=== PATIENT | female | born 1930 | race Asian ===

== ENCOUNTER 2019-05-18 08:01 | Inpatient (IN) | payer OTHER ==
[2019-05-18 08:53] LABS: ADD MAN DIFF? NO
[2019-05-18] MEDS: SODIUM CHLORIDE 0.9% 1L BAG IV* (08:56)
[2019-05-18 08:59] LABS: WHITE BLOOD COUNT 10.6 10^3/ul (4.8-10.8)
[2019-05-18 08:59] LABS: BASOPHIL # 0.1 10^3/ul (0.0-0.1); BASOPHILS % 0.5 % (0.0-2.0); EOSINOPHILS # 0.3 10^3/ul (0.0-0.5); EOSINOPHILS % 2.7 % (0.0-7.0); HEMATOCRIT 28.8 % (37.0-47.0); HEMOGLOBIN 10.2 g/dl (12.0-16.0); LYMPHOCYTES # 1.3 10^3/ul (0.8-2.9); LYMPHOCYTES % 11.9 % (15.0-51.0); MEAN CORPUSCULAR HEMOGLOBIN 30.5 pg (29.0-33.0); MEAN CORPUSCULAR HGB CONC 35.4 g/dl (32.0-37.0); MEAN CORPUSCULAR VOLUME 86.2 fl (82.0-101.0); MONOCYTE # 1.5 10^3/ul (0.3-0.9); MONOCYTES % 13.9 % (0.0-11.0); NEUTROPHIL # 7.5 10^3/ul (1.6-7.5); NEUTROPHILS % 70.6 % (39.0-77.0); PLATELET COUNT 236 10^3/UL (140-415); RED BLOOD COUNT 3.34 10^6/ul (4.20-5.40)
[2019-05-18 09:24] LABS: ALANINE AMINOTRANSFERASE 26 IU/L (13-69); ALBUMIN 4.1 g/dl (3.3-4.9); ALBUMIN/GLOBULIN RATIO 1.02; ALKALINE PHOSPHATASE 92 IU/L (42-121); ANION GAP 9 (5-13); ASPARTATE AMINO TRANSFERASE 38 IU/L (15-46); BILIRUBIN,INDIRECT 0.7 mg/dl (0-1.1); BILIRUBIN,TOTAL 0.7 mg/dl (0.2-1.3); BLOOD UREA NITROGEN 24 mg/dl (7-20); CARBON DIOXIDE 27 mmol/L (21-31); CHLORIDE 92 mmol/L (97-110); CREATININE 1.68 mg/dl (0.44-1.00); GLUCOSE 138 mg/dl (70-220); POTASSIUM 4.6 mmol/L (3.5-5.1); SODIUM 128 mmol/L (135-144); TOTAL PROTEIN 8.1 g/dl (6.1-8.1)
[2019-05-18 09:27] LABS: INR 1.04; PROTIME 13.7 Sec (11.9-14.9); PT RATIO 1.1
[2019-05-18 09:28] LABS: PARTIAL THROMBOPLASTIN TIME 37.2 Sec (23.0-35.0)
[2019-05-18] MEDS: ALBUTEROL 0.083% (NEB) 2.5 MG/3 ML AMP HHN (09:28)
[2019-05-18 09:35] LABS: TROPONIN-I 0.016 ng/ml (0.000-0.120)
[2019-05-18 10:32] LABS: ADD UMIC YES; UR ASCORBIC ACID NEGATIVE (NEGATIVE); UR BACTERIA FEW /HPF (NONE SEEN); UR BILIRUBIN (Dip) NEGATIVE (NEGATIVE); UR BLOOD (Dip) 2+ mg/dL (NEGATIVE); UR CLARITY SLIGHTLY CLOUDY (CLEAR); UR COLOR YELLOW (YELLOW); UR GLUCOSE (Dip) 1+ mg/dL (NEGATIVE); UR KETONES (Dip) TRACE mg/dL (NEGATIVE); UR LEUKOCYTE ESTERASE (Dip) 3+ Leu/ul (NEGATIVE); UR NITRITE (Dip) NEGATIVE (NEGATIVE); UR RBC 3 /HPF (0-5); UR SPECIFIC GRAVITY (Dip) 1.006 (1.003-1.030); UR TOTAL PROTEIN (Dip) 2+ mg/dl (NEGATIVE); UR UROBILINOGEN (Dip) NEGATIVE (NEGATIVE); UR WBC 58 /HPF (0-5)
[2019-05-18 11:16] LABS: LACTIC ACID 1.2 mmol/L (0.5-2.0)
[2019-05-18] MEDS: CEFTRIAXONE 1 GM/50 ML (PMX) 50 ML IVPB (11:26)
[2019-05-18] MEDS ORDERED: ACETAMINOPHEN 325 MG TAB PO (12:00)
[2019-05-18] MEDS ORDERED: ONDANSETRON 4 MG INJ IV (12:00)
[2019-05-18 15:55] LABS: LACTIC ACID 1.8 mmol/L (0.5-2.0)
[2019-05-18] MEDS ORDERED: GLUCOSE GEL 15 GRAM TUBE BUCCAL (16:00)
[2019-05-18] MEDS ORDERED: DEXTROSE 50% 50 ML SYRINGE IV ×2 (16:00)
[2019-05-18] MEDS ORDERED: HYDROCODONE/APAP (5/325) TAB PO (16:00)
[2019-05-18] MEDS ORDERED: NACL 0.9% 3 ML SYG IV (16:00)
[2019-05-18] MEDS ORDERED: GLUCOSE GEL 15 GRAM TUBE PO ×2 (16:00)
[2019-05-18] MEDS ORDERED: GLUCAGON 1 MG INJ IM (16:00)
[2019-05-18] MEDS: INSULIN ASPART [NOVOLOG] 3 ML PEN SC ×2 (18:05→20:22)
[2019-05-18] MEDS: INSULIN GLARGINE [LANTus] (100 UNITS/ML) SYG SC (20:19)
[2019-05-18] MEDS: HEPARIN 5,000 UNIT/1 ML VIAL SC (20:22)
[2019-05-19] MEDS: LORAZEPAM 2 MG INJ IV (00:58)
[2019-05-19] MEDS: ACCUCHECK AT 2AM (Patients on SS coverage) XX (02:00)
[2019-05-19] MEDS: ALBUTEROL 0.083% (NEB) 2.5 MG/3 ML AMP HHN ×2 (06:15→11:35)
[2019-05-19 06:22] LABS: ADD MAN DIFF? NO
[2019-05-19 06:33] LABS: WHITE BLOOD COUNT 11.1 10^3/ul (4.8-10.8)
[2019-05-19 06:33] LABS: ABNORMAL IP MESSAGE 1; BASOPHILS % 0.3 % (0.0-2.0); EOSINOPHILS % 0.3 % (0.0-7.0); HEMATOCRIT 26.1 % (37.0-47.0); HEMOGLOBIN 9.3 g/dl (12.0-16.0); LYMPHOCYTES # 1.2 10^3/ul (0.8-2.9); LYMPHOCYTES % 10.5 % (15.0-51.0); MEAN CORPUSCULAR HEMOGLOBIN 31.2 pg (29.0-33.0); MEAN CORPUSCULAR HGB CONC 35.6 g/dl (32.0-37.0); MEAN CORPUSCULAR VOLUME 87.6 fl (82.0-101.0); MONOCYTE # 1.6 10^3/ul (0.3-0.9); MONOCYTES % 14.8 % (0.0-11.0); NEUTROPHIL # 8.2 10^3/ul (1.6-7.5); NEUTROPHILS % 73.6 % (39.0-77.0); PLATELET COUNT 232 10^3/UL (140-415); RED BLOOD COUNT 2.98 10^6/ul (4.20-5.40); RED CELL DISTRIBUTION WIDTH 11.2 % (11.5-14.5)
[2019-05-19 06:37] LABS: POSITIVE DIFF @See below
[2019-05-19 07:00] LABS: ALANINE AMINOTRANSFERASE 19 IU/L (13-69); ALBUMIN 3.7 g/dl (3.3-4.9); ALBUMIN/GLOBULIN RATIO 1.12; ALKALINE PHOSPHATASE 89 IU/L (42-121); ANION GAP 12 (5-13); ASPARTATE AMINO TRANSFERASE 35 IU/L (15-46); BILIRUBIN,INDIRECT 0.6 mg/dl (0-1.1); BILIRUBIN,TOTAL 0.6 mg/dl (0.2-1.3); BLOOD UREA NITROGEN 20 mg/dl (7-20); CALCIUM 8.7 mg/dl (8.4-10.2); CARBON DIOXIDE 24 mmol/L (21-31); CHLORIDE 97 mmol/L (97-110); CREATININE 1.49 mg/dl (0.44-1.00); GLUCOSE 148 mg/dl (70-220); POTASSIUM 3.9 mmol/L (3.5-5.1); SODIUM 133 mmol/L (135-144)
[2019-05-19] MEDS: INSULIN ASPART [NOVOLOG] 3 ML PEN SC ×4 (08:21→20:21)
[2019-05-19 08:31] LABS: HEMOGLOBIN A1C 6.4 % (0-5.9)
[2019-05-19] MEDS: HEPARIN 5,000 UNIT/1 ML VIAL SC ×3 (09:00→20:22)
[2019-05-19] MEDS: CEFTRIAXONE 1 GM/50 ML (PMX) 50 ML IVPB (09:45)
[2019-05-19] MEDS: FUROSEMIDE 20 MG TAB PO (10:42)
[2019-05-19] MEDS: AMLODIPINE 5 MG TAB PO (10:42)
[2019-05-19] MEDS: METOPROLOL (XL) 50 MG TAB PO (10:42)
[2019-05-19] MEDS: CILOSTAZOL 100 MG TAB PO ×2 (10:42→20:19)
[2019-05-19] MEDS: ASPIRIN (EC) 81 MG TAB PO (10:42)
[2019-05-19] MEDS: AZITHROMYCIN 250 MG TAB PO (11:48)
[2019-05-19] MEDS: METHYLPREDNISOLONE 40 MG INJ IV ×4 (11:48→22:01)
[2019-05-19] MEDS: FUROSEMIDE 20 MG INJ IV (11:53)
[2019-05-19] MEDS: ALBUTEROL/IPRATROPIUM (NEB) 3 ML AMP HHN ×3 (14:02→20:27)
[2019-05-19] MEDS: FUROSEMIDE 40 MG INJ IV (16:21)
[2019-05-19 17:57] LABS: Allen Test ACCEPTAB; Arterial Base Excess -4.2 mmol/L (-3.0-3); Arterial Blood Gas Oxygen Sat 97.4 mmHG (95.0-100.0); Arterial COHb 0.3 % (0.0-3.0); Arterial Fraction of Oxyhgb 96.9 % (93.0-99.0); Arterial MetHb 0.2 % (0.0-1.5); MODE NASAL CANNULA; Site Right Radial
[2019-05-19 19:12] LABS: SODIUM,URINE RANDOM 22 mmol/L (30-90)
[2019-05-19 19:50] LABS: OSMOLALITY,URINE 267 mOsm/kg (250-1200)
[2019-05-19] MEDS: ATORVASTATIN 20 MG TAB PO (20:19)
[2019-05-19] MEDS: INSULIN GLARGINE [LANTus] (100 UNITS/ML) SYG SC (20:22)
[2019-05-20] MEDS: ALBUTEROL/IPRATROPIUM (NEB) 3 ML AMP HHN ×6 (00:14→20:30)
[2019-05-20] MEDS: ACCUCHECK AT 2AM (Patients on SS coverage) XX (02:00)
[2019-05-20] MEDS: METHYLPREDNISOLONE 40 MG INJ IV ×2 (05:55→13:24)
[2019-05-20] MEDS: CEFTRIAXONE 1 GM/50 ML (PMX) 50 ML IVPB (08:30)
[2019-05-20] MEDS: INSULIN ASPART [NOVOLOG] 3 ML PEN SC ×4 (08:31→20:29)
[2019-05-20] MEDS: ASPIRIN (EC) 81 MG TAB PO (08:32)
[2019-05-20] MEDS: HEPARIN 5,000 UNIT/1 ML VIAL SC ×2 (08:32→20:27)
[2019-05-20] MEDS: AZITHROMYCIN 250 MG TAB PO (08:32)
[2019-05-20] MEDS: CILOSTAZOL 100 MG TAB PO ×2 (08:32→20:26)
[2019-05-20] MEDS: FUROSEMIDE 40 MG INJ IV (08:37)
[2019-05-20] MEDS: AMLODIPINE 5 MG TAB PO (08:38)
[2019-05-20] MEDS: LOSARTAN 25 MG TAB PO (08:38)
[2019-05-20] MEDS: METOPROLOL (XL) 50 MG TAB PO (08:41)
[2019-05-20 13:37] LABS: URIC ACID 6.9 mg/dl (3.1-7.9)
[2019-05-20 13:37] LABS: PHOSPHORUS 3.6 mg/dl (2.5-4.9)
[2019-05-20 14:26] LABS: B-TYPE NATRIURETIC PEPTIDE 7680 PG/ML (0-450)
[2019-05-20] MEDS: ATORVASTATIN 20 MG TAB PO (20:26)
[2019-05-20] MEDS: INSULIN GLARGINE [LANTus] (100 UNITS/ML) SYG SC (20:28)
[2019-05-21] MEDS: ALBUTEROL/IPRATROPIUM (NEB) 3 ML AMP HHN ×4 (01:27→12:13)
[2019-05-21] MEDS: ACCUCHECK AT 2AM (Patients on SS coverage) XX (02:00)
[2019-05-21 06:38] LABS: PHOSPHORUS 3.9 mg/dl (2.5-4.9)
[2019-05-21 06:38] LABS: ANION GAP 14 (5-13); BLOOD UREA NITROGEN 39 mg/dl (7-20); CALCIUM 8.9 mg/dl (8.4-10.2); CARBON DIOXIDE 23 mmol/L (21-31); CHLORIDE 96 mmol/L (97-110); CREATININE 1.72 mg/dl (0.44-1.00); GLUCOSE 205 mg/dl (70-220); MAGNESIUM 2.1 mg/dl (1.7-2.5); POTASSIUM 3.9 mmol/L (3.5-5.1); SODIUM 133 mmol/L (135-144)
[2019-05-21] MEDS: INSULIN ASPART [NOVOLOG] 3 ML PEN SC ×2 (09:04→12:00)
[2019-05-21] MEDS: CEFTRIAXONE 1 GM/50 ML (PMX) 50 ML IVPB (09:09)
[2019-05-21] MEDS: FUROSEMIDE 40 MG INJ IV (09:10)
[2019-05-21] MEDS: HEPARIN 5,000 UNIT/1 ML VIAL SC (09:11)
[2019-05-21] MEDS: AZITHROMYCIN 250 MG TAB PO (09:11)
[2019-05-21] MEDS: CILOSTAZOL 100 MG TAB PO (09:12)
[2019-05-21] MEDS: LOSARTAN 25 MG TAB PO (09:13)
[2019-05-21] MEDS: ASPIRIN (EC) 81 MG TAB PO (09:13)
[2019-05-21] MEDS: AMLODIPINE 5 MG TAB PO (09:16)
[2019-05-21] MEDS: METOPROLOL (XL) 50 MG TAB PO (09:16)
[2019-05-21] MEDS: predniSONE 20 MG TAB PO (09:38)
== END 2019-05-21 14:22 | disposition home or self-care (01) | DRG 191 ==
LOC: E/R 08:01 → PP2 11:52
DX: J44.1 Chronic obstructive pulmonary disease with (acute) exacerbation (principal); N17.9 Acute kidney failure, unspecified; E87.1 Hypo-osmolality and hyponatremia; E11.22 Type 2 diabetes mellitus with diabetic chronic kidney disease; E11.65 Type 2 diabetes mellitus with hyperglycemia; I12.9 Hypertensive chronic kidney disease with stage 1 through stage 4 chronic kidney disease, or unspecified chronic kidney disease; N18.3 Chronic kidney disease, stage 3 (moderate); E11.21 Type 2 diabetes mellitus with diabetic nephropathy; Z79.4 Long term (current) use of insulin; Z79.82 Long term (current) use of aspirin
CPT/HCPCS: 36600; 71045; 76775; 80048; 80053; 81001; 82652; 82803; 82962; 83036; 83605; 83735; 83880; 83935; 84100; 84300; 84484; 84560; 85025; 85610; 85730; 87040-91; 87086; 93005; 93306; 94640; 94664; 97116; 97161